=== PATIENT | female | born 1930 | race Caucasian/White ===

== ENCOUNTER 2016-12-28 14:17 | Inpatient (IN) | payer OTHER, MEDICARE ==
[~2016-12-28] VITALS: Ht 165.1 cm; Wt 53.7 kg
[2016-12-28] MEDS ORDERED: AMLODIPINE BESYL5 MG PO (14:39)
[2016-12-28] MEDS ORDERED: LOSARTAN-HCTZ1 EAC2 PO (14:39)
[2016-12-28] MEDS ORDERED: LEVOTHYROXINE75 MCG PO (14:39)
[2016-12-28] MEDS ORDERED: VITAMIN D31000 UNIT PO (14:40)
[2016-12-28] MEDS ORDERED: PRAVASTATIN SOD40 MG PO (14:40)
[2016-12-28] MEDS ORDERED: LO-DOSE ASPIRIN81 M2 PO (14:40)
[2016-12-28] MEDS ORDERED: PRESERVISION T1 EACH PO (14:41)
[2016-12-28 14:56] LABS: HEMATOCRIT 37.3 % (36.0-46.0); MCH 30.8 PG (29.0-34.0); MCHC 33.2 G/DL (30.0-36.0); MCV 92.8 FL (83-99); MEAN PLAT.VOLUME 9.8 uM^3 (9.5-12.4); PLATELET COUNT 253 K/uL (156-360); RBC DIS.WIDTH-CV 13.1 % (11.8-14.6); RBC DIS.WIDTH-SD 44.5 % (39-53); RED BLOOD COUNT 4.02 M/uL (3.80-5.20); WHITE BLOOD COUNT 5.4 K/uL (4.1-10.2)
[2016-12-28 15:07] LABS: CHLORIDE 101 mEq/L (99-109); POTASSIUM 4.1 mEq/L (3.7-5.4); SODIUM 136 mEq/L (136-147)
[2016-12-28 15:08] LABS: PROTHROMBIN TIME 10.1 (9.2-11.2); PTT 23.8 (25-32)
[2016-12-28 15:09] LABS: GLUCOSE 110 mg/dL (70-99)
[2016-12-28 15:11] LABS: ANION GAP 11 MEQ/L (2-14)
[2016-12-28 15:13] LABS: GFR ESTIMATE (CALCULATED) 50 mL/min/
[2016-12-28 15:14] LABS: UREA NITROGEN (BUN) 21 mg/dL (9-23)
[2016-12-28 18:21] VITALS: BP 155/68
[2016-12-28 18:59] LABS: TROP-I INTERPRETATION NEGATIVE; TROPONIN-I < 0.01 ng/mL (0.0-0.30)
[2016-12-28 20:00] VITALS: BP 148/66
[2016-12-29] VITALS: BP 154/72
[2016-12-29 01:24] LABS: TROP-I INTERPRETATION NEGATIVE; TROPONIN-I < 0.01 ng/mL (0.0-0.30)
[2016-12-29 04:00] VITALS: BP 115/56
[2016-12-29 07:03] LABS: MCH 32.6 PG (29.0-34.0); MCHC 34.8 G/DL (30.0-36.0); MCV 93.5 FL (83-99); PLATELET COUNT 207 K/uL (156-360); RBC DIS.WIDTH-CV 13.2 % (11.8-14.6); RBC DIS.WIDTH-SD 45.3 % (39-53); WHITE BLOOD COUNT 8.9 K/uL (4.1-10.2)
[2016-12-29 07:06] LABS: ANION GAP 7 MEQ/L (2-14); CHLORIDE 100 MEQ/L (99-109); GFR ESTIMATE (CALCULATED) 56 mL/min/; GLUCOSE 103 mg/dL (70-99); POTASSIUM 3.9 MEQ/L (3.7-5.4); SAMPLE HEMOLYSIS CHECK 0; SAMPLE ICTERIC CHECK 0; SAMPLE LIPEMIA CHECK 0; SODIUM 135 MEQ/L (136-147); UREA NITROGEN (BUN) 18 mg/dL (9-23)
[2016-12-29 07:30] VITALS: BP 156/76
[2016-12-29 11:05] VITALS: BP 142/69
[2016-12-29 15:10] VITALS: BP 141/67
[2016-12-30 00:26] VITALS: BP 130/60
[2016-12-30 03:54] VITALS: BP 139/65
[2016-12-30 07:00] LABS: HEMATOCRIT 25.4 % (36.0-46.0); MCH 32.2 PG (29.0-34.0); MCHC 34.3 G/DL (30.0-36.0); MCV 94.1 FL (83-99); MEAN PLAT.VOLUME 10.5 uM^3 (9.5-12.4); PLATELET COUNT 175 K/uL (156-360); RBC DIS.WIDTH-CV 13.3 % (11.8-14.6); RBC DIS.WIDTH-SD 45.4 % (39-53); WHITE BLOOD COUNT 10.6 K/uL (4.1-10.2)
[2016-12-30 07:21] LABS: INTER. NORMALIZED RATIO 1.1; PROTHROMBIN TIME 11.7 (9.2-11.2)
[2016-12-30 07:30] VITALS: BP 107/54
[2016-12-30 07:40] LABS: ANION GAP 8 MEQ/L (2-14); CHLORIDE 97 MEQ/L (99-109); GFR ESTIMATE (CALCULATED) > 59 mL/min/; GLUCOSE 106 mg/dL (70-99); POTASSIUM 4.2 MEQ/L (3.7-5.4); SAMPLE HEMOLYSIS CHECK 0; SAMPLE ICTERIC CHECK 0; SAMPLE LIPEMIA CHECK 0; SODIUM 135 MEQ/L (136-147); UREA NITROGEN (BUN) 14 mg/dL (9-23)
[2016-12-30 11:45] VITALS: BP 102/51
[2016-12-30 12:35] LABS: HEMATOCRIT 24.7 % (36.0-46.0)
[2016-12-30 17:22] VITALS: BP 106/58
[2016-12-30 20:53] VITALS: BP 118/57
[2016-12-31 00:01] VITALS: BP 127/60
[2016-12-31 04:05] VITALS: BP 138/60
[2016-12-31 06:58] LABS: MCV 93.2 FL (83-99)
[2016-12-31 07:15] LABS: INTER. NORMALIZED RATIO 1.4; PROTHROMBIN TIME 14.9 (9.2-11.2)
[2016-12-31 07:43] VITALS: BP 116/56
[2016-12-31 11:47] VITALS: BP 100/50
[2016-12-31 15:41] VITALS: BP 102/55
[2016-12-31 18:10] LABS: HEMATOCRIT 22.5 % (36.0-46.0); MCV 95.3 FL (83-99)
[2016-12-31 23:29] VITALS: BP 103/51
[2017-01-01] VITALS (13 sets, daily range): BP systolic 106–144; BP diastolic 54–68
[2017-01-01 06:40] LABS: HEMATOCRIT 23.2 % (36.0-46.0); MCH 31.1 PG (29.0-34.0); MCHC 32.8 G/DL (30.0-36.0); MCV 95.1 FL (83-99); MEAN PLAT.VOLUME 10.6 uM^3 (9.5-12.4); PLATELET COUNT 199 K/uL (156-360); RBC DIS.WIDTH-CV 13.1 % (11.8-14.6); RBC DIS.WIDTH-SD 45.5 % (39-53); RED BLOOD COUNT 2.44 M/uL (3.80-5.20); WHITE BLOOD COUNT 8.6 K/uL (4.1-10.2)
[2017-01-01 07:08] LABS: ANION GAP 5 MEQ/L (2-14); CHLORIDE 97 MEQ/L (99-109); GFR ESTIMATE (CALCULATED) > 59 mL/min/; GLUCOSE 89 mg/dL (70-99); POTASSIUM 3.9 MEQ/L (3.7-5.4); SAMPLE HEMOLYSIS CHECK 0; SAMPLE ICTERIC CHECK 0; SAMPLE LIPEMIA CHECK 0; SODIUM 135 MEQ/L (136-147); UREA NITROGEN (BUN) 12 mg/dL (9-23)
[2017-01-01 07:11] LABS: INTER. NORMALIZED RATIO 1.8; PROTHROMBIN TIME 18.7 (9.2-11.2)
[2017-01-01 23:06] LABS: HEMATOCRIT 31.2 % (36.0-46.0); MCV 89.7 FL (83-99)
[2017-01-02 00:05] VITALS: BP 166/73
[2017-01-02 00:30] VITALS: BP 154/78
[2017-01-02 03:44] VITALS: BP 159/76
[2017-01-02 07:15] LABS: INTER. NORMALIZED RATIO 2.2; PROTHROMBIN TIME 23.4 (9.2-11.2)
[2017-01-02 07:58] VITALS: BP 150/68
[2017-01-02 08:10] LABS: HEMATOCRIT 32.9 % (36.0-46.0); MCH 31.5 PG (29.0-34.0); MCHC 34.7 G/DL (30.0-36.0); MCV 90.9 FL (83-99); MEAN PLAT.VOLUME 10.1 uM^3 (9.5-12.4); PLATELET COUNT 245 K/uL (156-360); RBC DIS.WIDTH-CV 14.5 % (11.8-14.6); RBC DIS.WIDTH-SD 48.2 % (39-53); WHITE BLOOD COUNT 6.6 K/uL (4.1-10.2)
[2017-01-02 08:23] LABS: ANION GAP 7 MEQ/L (2-14); CHLORIDE 98 MEQ/L (99-109); GFR ESTIMATE (CALCULATED) > 59 mL/min/; GLUCOSE 93 mg/dL (70-99); POTASSIUM 3.8 MEQ/L (3.7-5.4); SAMPLE HEMOLYSIS CHECK 0; SAMPLE ICTERIC CHECK 0; SAMPLE LIPEMIA CHECK 0; SODIUM 137 MEQ/L (136-147); UREA NITROGEN (BUN) 8 mg/dL (9-23)
[2017-01-02 08:31] LABS: RED BLOOD COUNT 3.62 M/uL (3.80-5.20)
[2017-01-02 11:49] VITALS: BP 148/76
[2017-01-02] MEDS ORDERED: COUMADIN1 MG PO (14:38)
[2017-01-02 15:31] VITALS: BP 131/60
== END 2017-01-02 17:48 | DRG 536 ==
LOC: EME → EDBD 14:17 → 3EAST 16:42 → EDOF 16:42 → 3EAST 17:42
PROVIDERS: Emergency Medicine; Hospitalist; Internal Medicine; Orthopaedic Surgery; Physician Assistant
PROC: 0SS934Z Reposition Right Hip Joint with Internal Fixation Device, Percutaneous Approach (ICD-10-PCS; principal; 2016-12-29)
PROC: 30233N1 Transfusion of Nonautologous Red Blood Cells into Peripheral Vein, Percutaneous Approach (ICD-10-PCS; 2017-01-01)
DX: S72.141A Displaced intertrochanteric fracture of right femur, initial encounter for closed fracture (principal); W01.0XXA Fall on same level from slipping, tripping and stumbling without subsequent striking against object, initial encounter; I10 Essential (primary) hypertension; Z66 Do not resuscitate; E78.2 Mixed hyperlipidemia; E03.9 Hypothyroidism, unspecified; I49.1 Atrial premature depolarization; K59.00 Constipation, unspecified; D64.9 Anemia, unspecified
CPT/HCPCS: 71010; 73502; 73552; 76000; 80048; 81003; 82272; 84443; 84484; 85014; 85018; 85027; 85610; 85730; 86900; 86901; 86920; 93005; 93306; 97530 GP; 99281; 99285; C1713; J0690; J2250; J2270; J2405; J3010; J7120; P9016